=== PATIENT | male | born 1940 | race Caucasian/White ===

== ENCOUNTER 2016-11-03 13:31 | Emergency (ER) | payer MEDICARE ==
[2016-11-03] MEDS ORDERED: IOPAMIDOL 300 (61%) 150 ML VIAL IV ONE (13:32)
[2016-11-03] MEDS ORDERED: MORPHINE SULFATE 4 MG/ML SYRINGE ONE ×2 (13:52→15:14)
[2016-11-03] MEDS ORDERED: CEFAZOLIN SODIUM 1 GRAM PREMIX 50 ML IV ONE ×2 (13:52→15:05)
[2016-11-03] MEDS ORDERED: SODIUM CHLORIDE 0.9% 1,000 ML ONE (13:52)
[2016-11-03] MEDS ORDERED: MORPHINE SULFATE 2 MG/ML SYRINGE ONE ×2 (13:52→15:14)
[2016-11-03 14:07] LABS: ABSOLUTE NEUTROPHIL COUNT 3.3 K/mm3 (1.8-7.7); BASO # 0.1 K/mm3 (0.0-0.2); EOS # 0.3 (0.0-0.5); EOS % 4.6 % (0.9-2.9); HEMATOCRIT 43.5 % (32.0-52.0); HEMOGLOBIN 13.8 gm/l (14.0-18.0); IMM NEUT # 0.1 K/mm3 (0-0.2); IMM NEUT% 0.9 % (0-1); LYMPH # 1.8 (1.0-4.8); LYMPH % 30.9 % (15-45); MEAN CELL VOLUME 89.7 fl (80.0-94.0); MEAN CORPUSCULAR HEMOGLOBIN 28.5 pg (27.0-31.0); MEAN CORPUSCULAR HGB CONC 31.7 g/dl (33.0-37.0); MONO # 0.4 (0.0-0.8); MONO % 7.2 % (4-12); NEUT % 55.4 % (43-75); PLATELET COUNT 220 K/mm3 (130-400)
[2016-11-03 14:26] LABS: INR 0.99; PROTHROMBIN TIME 10.4 SECONDS (9.3-11.4)
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
[2016-11-03 14:37] LABS: ALB/GLOB RATIO 1.4 (>1.0); ALBUMIN 4.2 gm/dL (3.5-5.7); CALCIUM 9.6 mg/dL (8.6-10.3)
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
[2016-11-03] MEDS ORDERED: ONDANSETRON 4 MG/2ML 2 ML VIAL ONE (15:14)
== END 2016-11-03 15:50 | disposition short-term general hospital (02) ==
LOC: ED 13:31 → EDBD 13:31 → ED 15:50
DX: S91.011A Laceration without foreign body, right ankle, initial encounter (principal); S95.011A Laceration of dorsal artery of right foot, initial encounter; S82.201B Unspecified fracture of shaft of right tibia, initial encounter for open fracture type I or II; S92.001B Unspecified fracture of right calcaneus, initial encounter for open fracture; S92.101B Unspecified fracture of right talus, initial encounter for open fracture; V09.20XA Pedestrian injured in traffic accident involving unspecified motor vehicles, initial encounter; Y93.55 Activity, bike riding; Y92.410 Unspecified street and highway as the place of occurrence of the external cause
CPT/HCPCS: 85025; 80053; 85610; 73600; 73701; 96375 ×2; 96376; 99285 ×2; 29515; 96365; 96367; J0690 ×2; J2270 ×4; J2405; J7030; Q9967

== ENCOUNTER 2016-12-18 17:06 | Emergency (ER) | payer MEDICARE | END 2016-12-18 19:27 | disposition home or self-care (01) | LOC: ED 17:06 | DX: T81.31XA Disruption of external operation (surgical) wound, not elsewhere classified, initial encounter (principal); Y83.9 Surgical procedure, unspecified as the cause of abnormal reaction of the patient, or of later complication, without mention of misadventure at the time of the procedure; Y92.9 Unspecified place or not applicable ==

== ENCOUNTER 2016-12-25 14:41 | Emergency (ER) | payer MEDICARE ==
[2016-12-25] MEDS ORDERED: CEFTRIAXONE 2 GRAM DUPLEX 50 ML IV ONE (16:21)
[2016-12-25 16:38] LABS: ABSOLUTE NEUTROPHIL COUNT 2.9 K/mm3 (1.8-7.7); BASO # 0.1 K/mm3 (0.0-0.2); BASO % 1.1 % (0.2-1.0); EOS # 0.2 (0.0-0.5); EOS % 3.9 % (0.9-2.9); HEMATOCRIT 26.2 % (32.0-52.0); HEMOGLOBIN 8.1 gm/l (14.0-18.0); IMM NEUT # 0.3 K/mm3 (0-0.2); IMM NEUT% 5.9 % (0-1); LYMPH # 1.5 (1.0-4.8); LYMPH % 25.9 % (15-45); MEAN CELL VOLUME 91.9 fl (80.0-94.0); MEAN CORPUSCULAR HEMOGLOBIN 28.4 pg (27.0-31.0); MEAN CORPUSCULAR HGB CONC 30.9 g/dl (33.0-37.0); MONO # 0.6 (0.0-0.8); MONO % 11.1 % (4-12); NEUT % 52.1 % (43-75); PLATELET COUNT 373 K/mm3 (130-400); RED CELL DISTRIBUTION WIDTH 16.4 % (11.5-14.5)
== END 2016-12-25 19:10 | disposition home or self-care (01) ==
LOC: ED 14:41
DX: T81.4XXA Infection following a procedure, initial encounter (principal); L03.115 Cellulitis of right lower limb; Y83.8 Other surgical procedures as the cause of abnormal reaction of the patient, or of later complication, without mention of misadventure at the time of the procedure; Y92.9 Unspecified place or not applicable
CPT/HCPCS: 85025; 87040 ×2; 99284; 96365; 36415; 99283; J0696